=== PATIENT | female | born 1965 | race African-American/Black ===

== ENCOUNTER 2016-12-03 10:21 | Emergency (ER) | payer OTHER ==
[~2016-12-03] VITALS: Ht 157.5 cm; Wt 55.0 kg
[~2016-12-03 10:21] MED LIST: FLUT16H IH
[2016-12-03 10:48] LABS: HEMATOCRIT 37.8 % (36-46); HEMOGLOBIN 12.4 g/dL (12.0-16.0); MEAN CORPUSCULAR HEMOGLOBIN 26.6 pg (26.0-34.0); MEAN CORPUSCULAR HGB CONC 32.7 G/dL (31.0-37.0); MEAN CORPUSCULAR VOLUME 81 fL (80-100); PLATELET COUNT (AUTO) 221 K/uL (150-450); RED BLOOD CELL COUNT(AUTO) 4.64 MIL/uL (4.00-5.20); RED CELL DISTRIBUTION WIDTH 15.2 % (11.5-14.5)
[2016-12-03] MEDS ORDERED: HYDR25TA PO (10:50)
[2016-12-03 10:54] LABS: ANION GAP 11 mmol/L (8-16); CALCIUM, TOTAL 9.2 mg/dL (8.8-10.5); CARBON DIOXIDE 27 mmol/L (22-29); CHLORIDE 100 mmol/L (98-107); CREATININE 0.58 mg/dL (0.60-1.30); GLOMERULAR FILTR. RATE CALC > 60 mL/min (>60); POTASSIUM 3.7 mmol/L (3.5-5.1); SODIUM SERUM 138 mmol/L (136-145); UREA NITROGEN, BLOOD 13 mg/dL (7-18)
[2016-12-03 11:11] LABS: PROTHROMBIN TIME 10.3 SEC (9.4-11.6)
[2016-12-03 11:19] LABS: ALANINE AMINOTRANSFERASE 48 U/L (12-78); ALBUMIN 4.2 g/dL (3.4-5.0); ASPARTATE AMINOTRANSFERASE 79 U/L (15-37); BILIRUBIN,TOTAL 1.2 mg/dL (0.1-1.0); CREATINE KINASE MB 2.5 ng/mL (0-5); CREATINE KINASE, TOTAL 357 U/L (26-192); TOTAL PROTEIN, SERUM 8.6 g/dL (6.4-8.2)
[2016-12-03 11:23] LABS: B-TYPE NATRIURETIC PEPTIDE 13 pg/mL (0-100)
[2016-12-03 11:32] LABS: BAND NEUTROPHILS % (MANUAL) 5 % (1-5); LYMPHOCYTES % (MANUAL) 36 % (22-44); RBC MORPHOLOGY COMMENT NORMAL RBC MORPH; TOTAL CELLS COUNTED 100
[2016-12-03] MEDS ORDERED: SODIUM CHLORIDE 0.9% 1,000 ML IV ONE (12:15)
[2016-12-03] MEDS ORDERED: LEVOFLOXACIN 500 MG/D5% WATER 100 ML IV ONE (12:30)
[2016-12-03] MEDS ORDERED: HYDROCODONE/ACETAMINOPHEN 5-325 MG TABLET PO ONE (12:45)
[2016-12-03 12:47] LABS: GLUCOSE, URINE (UA) NEGATIVE (NEGATIVE); KETONES,URINE NEGATIVE (NEGATIVE); LEUKOCYTE ESTERASE ,URINE TRACE (NEGATIVE); OCCULT BLOOD,URINE NEGATIVE (NEGATIVE); PH,URINE 7.5 (5.0-8.0); PROTEIN,URINE TRACE (NEGATIVE)
[2016-12-03 12:50] LABS: ADD UA MICROSCOPIC YES; APPEARANCE,URINE HAZY (CLEAR)
[2016-12-03 12:51] LABS: RBC,URINE None Seen /HPF (0-2)
[2016-12-03 12:52] LABS: SQUAMOUS EPITHELIAL CELL,UR Few /LPF (None Seen)
[2016-12-03 13:41] VITALS: BP 142/81
== END 2016-12-03 13:50 | disposition home or self-care (01) ==
LOC: EMS 10:23
DX: R07.89 Other chest pain (principal); J06.9 Acute upper respiratory infection, unspecified; I25.10 Atherosclerotic heart disease of native coronary artery without angina pectoris; M79.1 Myalgia; I11.9 Hypertensive heart disease without heart failure; I25.2 Old myocardial infarction; J45.909 Unspecified asthma, uncomplicated; F14.10 Cocaine abuse, uncomplicated; F17.210 Nicotine dependence, cigarettes, uncomplicated; Z72.89 Other problems related to lifestyle; Z88.0 Allergy status to penicillin; Z88.6 Allergy status to analgesic agent
CPT/HCPCS: 36415; 71010; 80053; 80307; 81001; 82550; 82553; 83880; 84484; 85025; 85610; 85730; 87077; 87086; 87186; 93005; 96365; 99285; 99406; G0480; J1956; J7030

== ENCOUNTER 2017-06-15 13:43 | Emergency (ER) | payer OTHER ==
[~2017-06-15] VITALS: Ht 157.5 cm; Wt 47.3 kg
[~2017-06-15 13:43] MED LIST changes: +HYDR25TA PO
[2017-06-15] MEDS ORDERED: PERTUSS(ACELL),DIPH,TET VAC/PF 0.5 ML VIAL IM ONE (15:00)
[2017-06-15] MEDS ORDERED: TraMADol HCL 50 MG TABLET PO ONE (15:00)
[2017-06-15] MEDS ORDERED: POVIDONE-IODINE 10% 15 ML SOLUTION UD TP ONE (15:00)
[2017-06-15] MEDS ORDERED: CEPHALEXIN MONOHYDRATE 500 MG CAPSULE PO ONE (15:15)
[2017-06-15] MEDS ORDERED: SULFAMETHOX/TRIMETH DS 800-160 MG/TABLET PO ONE (15:15)
[2017-06-15] MEDS ORDERED: LIDOCAINE HCL 1% 10 ML VIAL INJ ONE (16:00)
[2017-06-15 16:42] VITALS: BP 129/87
== END 2017-06-15 16:52 | disposition home or self-care (01) ==
LOC: EMS 13:46
DX: S81.831A Puncture wound without foreign body, right lower leg, initial encounter (principal); S81.811A Laceration without foreign body, right lower leg, initial encounter; J45.909 Unspecified asthma, uncomplicated; I11.9 Hypertensive heart disease without heart failure; I25.2 Old myocardial infarction; F17.210 Nicotine dependence, cigarettes, uncomplicated; F14.90 Cocaine use, unspecified, uncomplicated; Z88.0 Allergy status to penicillin; Z88.6 Allergy status to analgesic agent; Z86.73 Personal history of transient ischemic attack (TIA), and cerebral infarction without residual deficits; W45.8XXA Other foreign body or object entering through skin, initial encounter; Y93.01 Activity, walking, marching and hiking; Y92.89 Other specified places as the place of occurrence of the external cause; Y99.8 Other external cause status
CPT/HCPCS: 12002; 73562; 90471; 90715; 99284; J3490

== ENCOUNTER 2017-10-02 19:12 | Emergency (ER) | payer OTHER ==
[~2017-10-02] VITALS: Ht 157.5 cm; Wt 47.3 kg
[2017-10-02] MEDS ORDERED: TraMADol HCL 50 MG TABLET PO ONE (22:15)
[2017-10-02] MEDS ORDERED: METHOCARBAMOL 500 MG TABLET PO ONE (22:15)
[2017-10-02 22:34] VITALS: BP 144/98
== END 2017-10-02 22:35 | disposition home or self-care (01) ==
LOC: EMS 19:17
DX: S96.911A Strain of unspecified muscle and tendon at ankle and foot level, right foot, initial encounter (principal); M62.838 Other muscle spasm; J45.909 Unspecified asthma, uncomplicated; I11.9 Hypertensive heart disease without heart failure; I25.2 Old myocardial infarction; F17.210 Nicotine dependence, cigarettes, uncomplicated; F11.10 Opioid abuse, uncomplicated; Z86.73 Personal history of transient ischemic attack (TIA), and cerebral infarction without residual deficits; Z88.0 Allergy status to penicillin; Z88.6 Allergy status to analgesic agent; X58.XXXA Exposure to other specified factors, initial encounter; Y93.89 Activity, other specified; Y92.89 Other specified places as the place of occurrence of the external cause; Y99.8 Other external cause status
CPT/HCPCS: 99283

== ENCOUNTER 2017-10-22 20:20 | Emergency (ER) | payer OTHER ==
[~2017-10-22] VITALS: Ht 165.1 cm; Wt 61.5 kg
[2017-10-22 22:49] LABS: GLUCOSE,POINT OF CARE 113 MG/DL (70-110)
[2017-10-22 22:52] LABS: HEMATOCRIT 38.7 % (36-46); HEMOGLOBIN 12.7 g/dL (12.0-16.0); MEAN CORPUSCULAR HGB CONC 32.8 G/dL (31.0-37.0); MEAN CORPUSCULAR VOLUME 82 fL (80-100); PLATELET COUNT (AUTO) 222 K/uL (150-450); RED BLOOD CELL COUNT(AUTO) 4.69 MIL/uL (4.00-5.20)
[2017-10-22 23:01] LABS: ANION GAP 13 mmol/L (8-16); CALCIUM, TOTAL 10.1 mg/dL (8.8-10.5); CARBON DIOXIDE 26 mmol/L (22-29); CHLORIDE 95 mmol/L (98-107); CREATININE 0.53 mg/dL (0.60-1.30); GLOMERULAR FILTR. RATE CALC > 60 mL/min (>60); GLUCOSE,RANDOM 96 mg/dL (70-110); POTASSIUM 4.6 mmol/L (3.5-5.1); SODIUM SERUM 134 mmol/L (136-145); UREA NITROGEN, BLOOD 15 mg/dL (7-18)
[2017-10-22 23:06] LABS: ALANINE AMINOTRANSFERASE 39 U/L (12-78); ALBUMIN 4.2 g/dL (3.4-5.0); ALKALINE PHOSPHATASE 100 U/L (46-116); ASPARTATE AMINOTRANSFERASE 44 U/L (15-37)
[2017-10-22 23:07] LABS: PROTHROMBIN TIME 10.4 SEC (9.4-11.6)
[2017-10-22] MEDS ORDERED: LevETIRAcetam 500 MG in DEXTROSE 5%-WATER 100 ML IV ONE (23:15)
[2017-10-22 23:23] LABS: BAND NEUTROPHILS % (MANUAL) 2 % (1-5); BASOPHILS % (MANUAL) 1 % (0-2); LYMPHOCYTES % (MANUAL) 11 % (22-44); MONOCYTES % (MANUAL) 1 % (2-9); SEGMENTED NEUTROPHILS % 85 % (40-70)
[2017-10-22] MEDS ORDERED: LORazepam 2 MG/ML VIAL IM ONE (23:30)
[2017-10-22 23:38] LABS: TROPONIN I 0.03 ng/mL (0.00-0.05)
[2017-10-23 00:44] LABS: APPEARANCE,URINE CLEAR (CLEAR); BILIRUBIN,URINE NEGATIVE (NEGATIVE); GLUCOSE, URINE (UA) NEGATIVE (NEGATIVE); KETONES,URINE 15 mg/dL (NEGATIVE); LEUKOCYTE ESTERASE ,URINE NEGATIVE (NEGATIVE); NITRATE,URINE NEGATIVE (NEGATIVE); OCCULT BLOOD,URINE MODERATE (NEGATIVE); PH,URINE 5.5 (5.0-8.0); PROTEIN,URINE SEE CONFIRM (NEGATIVE)
[2017-10-23 00:48] LABS: AMPHET/METH SCREEN,URINE NEGATIVE (NEGATIVE); BARBITURATE SCREEN, URINE NEGATIVE (NEGATIVE); BENZODIAZEPINES SCREEN,URINE NEGATIVE (NEGATIVE); CANNABINOID SCREEN,URINE NEGATIVE (NEGATIVE); COCAINE SCREEN,URINE NEGATIVE (NEGATIVE); METHADONE SCREEN, URINE NEGATIVE (NEGATIVE); OPIATE SCREEN,URINE POSITIVE (NEGATIVE)
[2017-10-23 00:49] LABS: PHENCYCLIDINE SCREEN,URINE NEGATIVE (NEGATIVE)
[2017-10-23 00:57] LABS: SULFOSALICYLIC ACID,URINE 2+ (Negative)
[2017-10-23 00:58] LABS: BACTERIA,URINE Few /HPF (None Seen); MUCUS,URINE Few LPF (None Seen); SQUAMOUS EPITHELIAL CELL,UR Few /LPF (None Seen); WBC,URINE 0-2 /HPF (0-5)
[2017-10-23 01:17] VITALS: BP 138/90
== END 2017-10-23 01:36 | disposition short-term general hospital (02) ==
LOC: EMS 20:23
DX: I61.9 Nontraumatic intracerebral hemorrhage, unspecified (principal); G40.909 Epilepsy, unspecified, not intractable, without status epilepticus; J45.909 Unspecified asthma, uncomplicated; I25.2 Old myocardial infarction; I11.9 Hypertensive heart disease without heart failure; F32.9 Major depressive disorder, single episode, unspecified; F17.210 Nicotine dependence, cigarettes, uncomplicated; F14.90 Cocaine use, unspecified, uncomplicated; Z86.73 Personal history of transient ischemic attack (TIA), and cerebral infarction without residual deficits; Z88.0 Allergy status to penicillin; Z88.6 Allergy status to analgesic agent
CPT/HCPCS: 36415; 51702; 70450; 71045; 80053; 80307; 81001; 82140; 82962; 84484; 85025; 85610; 85730; 87040; 93005; 96365; 96372; 99291; J0712; J2060; J7060

== ENCOUNTER 2018-02-20 01:56 | Emergency (ER) | payer OTHER ==
[~2018-02-20] VITALS: Ht 157.5 cm; Wt 54.5 kg
[2018-02-20] MEDS ORDERED: FERR325T22 PO (02:02)
[2018-02-20] MEDS ORDERED: CYCL10TA7 PO (02:02)
[2018-02-20] MEDS ORDERED: LOSA25TA21 PO (02:05)
[2018-02-20] MEDS ORDERED: DIAZEPAM 5 MG TABLET PO ONE (02:15)
[2018-02-20 02:59] VITALS: BP 119/88
== END 2018-02-20 03:32 | disposition home or self-care (01) ==
LOC: EMS 01:56
DX: S16.1XXA Strain of muscle, fascia and tendon at neck level, initial encounter (principal); G44.209 Tension-type headache, unspecified, not intractable; J45.909 Unspecified asthma, uncomplicated; I11.9 Hypertensive heart disease without heart failure; I25.2 Old myocardial infarction; F17.210 Nicotine dependence, cigarettes, uncomplicated; F14.90 Cocaine use, unspecified, uncomplicated; Z86.73 Personal history of transient ischemic attack (TIA), and cerebral infarction without residual deficits; Z88.0 Allergy status to penicillin; Z88.6 Allergy status to analgesic agent; X58.XXXA Exposure to other specified factors, initial encounter; Y93.89 Activity, other specified; Y92.89 Other specified places as the place of occurrence of the external cause; Y99.8 Other external cause status
CPT/HCPCS: 99283

== ENCOUNTER 2018-06-07 14:01 | Emergency (ER) | payer OTHER ==
[~2018-06-07] VITALS: Ht 157.5 cm; Wt 69.1 kg
[~2018-06-07 14:01] MED LIST changes: +CYCL10TA7 PO; +FERR325T22 PO; -FLUT16H IH; -HYDR25TA PO; +LOSA25TA21 PO
[2018-06-07] MEDS ORDERED: seizure PO (14:14)
[2018-06-07] MEDS ORDERED: HydrOXYzine HCL 50 MG TABLET PO ONE (15:15)
[2018-06-07 15:43] VITALS: BP 130/85
== END 2018-06-07 15:44 | disposition home or self-care (01) ==
LOC: EMS 14:04
DX: S50.861A Insect bite (nonvenomous) of right forearm, initial encounter (principal); L03.113 Cellulitis of right upper limb; J45.909 Unspecified asthma, uncomplicated; F32.9 Major depressive disorder, single episode, unspecified; I10 Essential (primary) hypertension; I25.2 Old myocardial infarction; I35.1 Nonrheumatic aortic (valve) insufficiency; Z90.49 Acquired absence of other specified parts of digestive tract; Z90.89 Acquired absence of other organs; Z86.73 Personal history of transient ischemic attack (TIA), and cerebral infarction without residual deficits; Z79.899 Other long term (current) drug therapy; Z88.0 Allergy status to penicillin; Z88.8 Allergy status to other drugs, medicaments and biological substances; W57.XXXA Bitten or stung by nonvenomous insect and other nonvenomous arthropods, initial encounter; Y93.89 Activity, other specified; Y92.89 Other specified places as the place of occurrence of the external cause; Y99.8 Other external cause status
CPT/HCPCS: 99283

== ENCOUNTER 2018-11-01 17:29 | Emergency (ER) | payer OTHER ==
[~2018-11-01] VITALS: Ht 157.5 cm; Wt 57.3 kg
[~2018-11-01 17:29] MED LIST changes: -CYCL10TA7 PO; -FERR325T22 PO; -LOSA25TA21 PO; +LOSA25TA41 PO; +seizure PO
[2018-11-01] MEDS ORDERED: METO25 PO (19:04)
[2018-11-01] MEDS ORDERED: SILVER NITRATE APPLICATOR 1 EA STICK TP ONE (19:30)
[2018-11-01 19:45] VITALS: BP 125/72
== END 2018-11-01 20:08 | disposition home or self-care (01) ==
LOC: EMS 17:30
DX: R04.0 Epistaxis (principal); J45.909 Unspecified asthma, uncomplicated; I11.9 Hypertensive heart disease without heart failure; I25.2 Old myocardial infarction; F32.9 Major depressive disorder, single episode, unspecified; F14.90 Cocaine use, unspecified, uncomplicated; F19.90 Other psychoactive substance use, unspecified, uncomplicated; F17.210 Nicotine dependence, cigarettes, uncomplicated; Z86.73 Personal history of transient ischemic attack (TIA), and cerebral infarction without residual deficits; Z93.3 Colostomy status
CPT/HCPCS: 30901

== ENCOUNTER 2018-11-11 14:53 | Emergency (ER) | payer OTHER ==
[~2018-11-11] VITALS: Ht 162.6 cm; Wt 65.9 kg
[~2018-11-11 14:53] MED LIST changes: +METO25 PO
[2018-11-11 16:43] LABS: BASOPHILS % (AUTO) 1.5 % (0.0-2.0); EOSINOPHILS % (AUTO) 1.7 % (1.0-6.0); HEMATOCRIT 32.6 % (36-46); HEMOGLOBIN 10.9 g/dL (12.0-16.0); LYMPHOCYTES # (AUTO) 1.6 K/uL (1.0-4.8); LYMPHOCYTES % (AUTO) 47.8 % (22.0-44.0); MEAN CORPUSCULAR HEMOGLOBIN 28.6 pg (26.0-34.0); MEAN CORPUSCULAR HGB CONC 33.4 G/dL (31.0-37.0); MEAN CORPUSCULAR VOLUME 86 fL (80-100); MONOCYTES # (AUTO) 0.2 K/uL (0.1-1.0); MONOCYTES % (AUTO) 5.6 % (2.0-9.0); NEUTROPHILS # (AUTO) 1.5 K/uL (1.8-7.7); NEUTROPHILS % (AUTO) 43.4 % (40.0-70.0); PLATELET COUNT (AUTO) 304 K/uL (150-450)
[2018-11-11 16:59] LABS: INR 1.1 (0.9-1.1)
[2018-11-11] MEDS ORDERED: SILVER NITRATE APPLICATOR 1 EA STICK TP ONE (17:15)
[2018-11-11] MEDS ORDERED: LIDOCAINE 2% 5 ML JELLY TP ONE (17:15)
[2018-11-11 17:25] LABS: PLATELET MORPHOLOGY COMMENT NORMAL
[2018-11-11] MEDS ORDERED: ACETAMINOPHEN 500 MG TABLET PO ONE (18:15)
[2018-11-11] MEDS ORDERED: OXYMETAZOLINE HCL 0.05% 15 ML NASAL SPRAY NASAL ONE (19:45)
[2018-11-11 23:00] VITALS: BP 147/84
== END 2018-11-12 00:03 | disposition short-term general hospital (02) ==
LOC: EMS 14:54
DX: R04.0 Epistaxis (principal); I11.9 Hypertensive heart disease without heart failure; J45.909 Unspecified asthma, uncomplicated; I25.2 Old myocardial infarction; F14.90 Cocaine use, unspecified, uncomplicated; F15.90 Other stimulant use, unspecified, uncomplicated; F17.210 Nicotine dependence, cigarettes, uncomplicated; Z88.0 Allergy status to penicillin; Z88.6 Allergy status to analgesic agent
CPT/HCPCS: 30901; 99406

== ENCOUNTER 2019-12-26 12:56 | Emergency (ER) | payer MEDICAID, MEDICARE, OTHER ==
[~2019-12-26] VITALS: Ht 162.6 cm; Wt 65.0 kg
[~2019-12-26 12:56] MED LIST changes: -LOSA25TA41 PO; +LOSA25TA71 PO
[2019-12-26] MEDS ORDERED: KETOROLAC TROMETHAMINE 30 MG/ML VIAL IM ONE (14:45)
[2019-12-26 15:50] VITALS: BP 103/75
== END 2019-12-26 15:54 | disposition home or self-care (01) ==
LOC: EMS 12:57
DX: M77.12 Lateral epicondylitis, left elbow (principal); I11.9 Hypertensive heart disease without heart failure; I25.2 Old myocardial infarction; J45.909 Unspecified asthma, uncomplicated; F17.210 Nicotine dependence, cigarettes, uncomplicated; F15.90 Other stimulant use, unspecified, uncomplicated; F32.9 Major depressive disorder, single episode, unspecified; F11.90 Opioid use, unspecified, uncomplicated; Z88.0 Allergy status to penicillin; Z88.6 Allergy status to analgesic agent; Z86.73 Personal history of transient ischemic attack (TIA), and cerebral infarction without residual deficits; Z98.890 Other specified postprocedural states; Z79.899 Other long term (current) drug therapy
CPT/HCPCS: 73080; 96372; 99283; J1885

== ENCOUNTER 2020-02-20 11:31 | Inpatient (IN) | payer MEDICAID ==
[~2020-02-20] VITALS: Ht 157.5 cm; Wt 51.8 kg
[2020-02-20] MEDS ORDERED: ACETAMINOPHEN 325 MG TABLET PO ONE (12:15)
[2020-02-20 12:43] LABS: ANION GAP 8 mmol/L (8-16); CALCIUM, TOTAL 9.8 mg/dL (8.8-10.5); CARBON DIOXIDE 28 mmol/L (22-29); CHLORIDE 101 mmol/L (98-107); CREATININE 0.68 mg/dL (0.60-1.30); GLOMERULAR FILTR. RATE CALC > 60 mL/min (>60); GLUCOSE,RANDOM 98 mg/dL (70-110); POTASSIUM 3.7 mmol/L (3.5-5.1); SODIUM SERUM 137 mmol/L (136-145); UREA NITROGEN, BLOOD 12 mg/dL (7-18)
[2020-02-20 12:49] LABS: ALANINE AMINOTRANSFERASE 44 U/L (12-78); ALBUMIN 4.6 g/dL (3.4-5.0); ALKALINE PHOSPHATASE 103 U/L (46-116); ASPARTATE AMINOTRANSFERASE 51 U/L (15-37); BILIRUBIN,TOTAL 1.2 mg/dL (0.1-1.0); TOTAL PROTEIN, SERUM 8.1 g/dL (6.4-8.2)
[2020-02-20 13:02] LABS: BASOPHILS % (AUTO) 1.2 % (0.0-2.0); EOSINOPHILS % (AUTO) 3.2 % (1.0-6.0); HEMOGLOBIN 12.9 g/dL (12.0-16.0); LYMPHOCYTES # (AUTO) 1.3 K/uL (1.0-4.8); LYMPHOCYTES % (AUTO) 40.4 % (22.0-44.0); MEAN CORPUSCULAR VOLUME 82 fL (80-100); MONOCYTES # (AUTO) 0.3 K/uL (0.1-1.0); MONOCYTES % (AUTO) 10.1 % (2.0-9.0); NEUTROPHILS # (AUTO) 1.5 K/uL (1.8-7.7); NEUTROPHILS % (AUTO) 45.1 % (40.0-70.0); PLATELET COUNT (AUTO) 251 K/uL (150-450); RED BLOOD CELL COUNT(AUTO) 4.77 MIL/uL (4.00-5.20); RED CELL DISTRIBUTION WIDTH 14.9 % (11.5-14.5)
[2020-02-20 13:15] LABS: PROTHROMBIN TIME 10.4 SEC (9.4-11.6)
[2020-02-20 13:38] LABS: CREATINE KINASE, TOTAL ONLY 164 U/L (26-192); PHOSPHORUS 3.2 mg/dL (2.5-4.9)
[2020-02-20 13:43] LABS: B-TYPE NATRIURETIC PEPTIDE 50 pg/mL (0-100)
[2020-02-20] MEDS ORDERED: ONDANSETRON HCL 4 MG/2 ML VIAL IVP PRN ×2 (15:30→16:15)
[2020-02-20] MEDS ORDERED: 0.9% SODIUM CHLORIDE 10 ML SYRINGE IVP PRN ×2 (15:30→16:15)
[2020-02-20] MEDS ORDERED: ACETAMINOPHEN 325 MG TABLET PO PRN (15:30)
[2020-02-20 16:08] LABS: FREE T4 (FREE THYROXINE) 1.03 ng/dL (0.76-1.46); THYROID STIMULATING HORMONE 1.12 uIU/mL (0.36-3.74)
[2020-02-20] MEDS ORDERED: ALBUTEROL SULFATE 2.5 MG/0.5 ML NEB SOLUTION NEB PRN (16:15)
[2020-02-20] MEDS ORDERED: IPRATROPIUM BROMIDE 0.5 MG/2.5 ML NEB SOLUTION NEB PRN (16:15)
[2020-02-20] MEDS ORDERED: MAGNESIUM HYDROXIDE SUSPENSION 30 ML UDCUP PO PRN (16:15)
[2020-02-20] MEDS ORDERED: DOCUSATE SODIUM 100 MG CAPSULE PO PRN (16:15)
[2020-02-20] MEDS ORDERED: BISACODYL 10 MG RECTAL RECTAL SUPPOSITORY PR PRN (16:15)
[2020-02-20] MEDS: FOLIC ACID 1 MG TABLET PO SCH (16:49)
[2020-02-20] MEDS: PANTOPRAZOLE SODIUM 40 MG DR TABLET PO SCH (16:49)
[2020-02-20] MEDS: THIAMINE 100 MG TABLET PO SCH (16:49)
[2020-02-20] MEDS: MULTIVITAMINS, THERAPEUTIC TABLET PO SCH (17:19)
[2020-02-20 20:26] VITALS: BP 118/81
[2020-02-20] MEDS: ACETAMINOPHEN 325 MG TABLET PO PRN (21:47)
[2020-02-20 23:36] VITALS: BP 106/62
[2020-02-21 04:42] VITALS: BP 114/78
[2020-02-21] MEDS: ACETAMINOPHEN 325 MG TABLET PO PRN ×2 (06:33→20:32)
[2020-02-21 06:52] LABS: BASOPHILS % (AUTO) 0.8 % (0.0-2.0); EOSINOPHILS % (AUTO) 5.3 % (1.0-6.0); HEMATOCRIT 40.3 % (36-46); HEMOGLOBIN 13.3 g/dL (12.0-16.0); LYMPHOCYTES # (AUTO) 1.1 K/uL (1.0-4.8); LYMPHOCYTES % (AUTO) 40.1 % (22.0-44.0); MEAN CORPUSCULAR HEMOGLOBIN 27.4 pg (26.0-34.0); MEAN CORPUSCULAR VOLUME 83 fL (80-100); MONOCYTES # (AUTO) 0.3 K/uL (0.1-1.0); MONOCYTES % (AUTO) 10.1 % (2.0-9.0); NEUTROPHILS # (AUTO) 1.2 K/uL (1.8-7.7); NEUTROPHILS % (AUTO) 43.7 % (40.0-70.0); PLATELET COUNT (AUTO) 236 K/uL (150-450); RED BLOOD CELL COUNT(AUTO) 4.85 MIL/uL (4.00-5.20); RED CELL DISTRIBUTION WIDTH 14.9 % (11.5-14.5)
[2020-02-21 07:09] LABS: ANION GAP 12 mmol/L (8-16); CALCIUM, TOTAL 9.9 mg/dL (8.8-10.5); CARBON DIOXIDE 27 mmol/L (22-29); CHLORIDE 98 mmol/L (98-107); CHOL/HDL RATIO 1.6 (3.9-5.7); CHOLESTEROL 202 mg/dL (131-200); CREATININE 0.56 mg/dL (0.60-1.30); GLOMERULAR FILTR. RATE CALC > 60 mL/min (>60); GLUCOSE,RANDOM 99 mg/dL (70-110); HDL CHOLESTEROL 128 mg/dL (40-60); LDL CHOL (CALC.) 59 mg/dL (0-130); POTASSIUM 3.2 mmol/L (3.5-5.1); SODIUM SERUM 137 mmol/L (136-145); TRIGLYCERIDES 73 mg/dL (15-150); UREA NITROGEN, BLOOD 15 mg/dL (7-18)
[2020-02-21] MEDS: FOLIC ACID 1 MG TABLET PO SCH (10:13)
[2020-02-21] MEDS: MULTIVITAMINS, THERAPEUTIC TABLET PO SCH (10:14)
[2020-02-21] MEDS: THIAMINE 100 MG TABLET PO SCH (10:14)
[2020-02-21] MEDS: PANTOPRAZOLE SODIUM 40 MG DR TABLET PO SCH (10:14)
[2020-02-21] MEDS ORDERED: POTASSIUM CHLORIDE 20 MEQ ER TABLET PO PRN (11:00)
[2020-02-21 11:43] VITALS: BP_SYST 110; BP_SYST 96; BP_DIAS 57; BP_DIAS 79
[2020-02-21] MEDS ORDERED: ALPRAZolam 0.25 MG TABLET PO ONE (15:45)
[2020-02-21 19:57] VITALS: BP 121/86
[2020-02-21] MEDS ORDERED: ATORVASTATIN CALCIUM 40 MG TABLET PO SCH (21:00)
[2020-02-21 21:31] LABS: AMPHET/METH SCREEN,URINE POSITIVE (NEGATIVE); BARBITURATE SCREEN, URINE NEGATIVE (NEGATIVE); BENZODIAZEPINES SCREEN,URINE NEGATIVE (NEGATIVE); CANNABINOID SCREEN,URINE POSITIVE (NEGATIVE); COCAINE SCREEN,URINE NEGATIVE (NEGATIVE); METHADONE SCREEN, URINE NEGATIVE (NEGATIVE); OPIATE SCREEN,URINE NEGATIVE (NEGATIVE)
[2020-02-21 21:32] LABS: PHENCYCLIDINE SCREEN,URINE NEGATIVE (NEGATIVE)
[2020-02-21 23:49] VITALS: BP 110/73
[2020-02-22 04:58] VITALS: BP 111/78
[2020-02-22] MEDS: PANTOPRAZOLE SODIUM 40 MG DR TABLET PO SCH (08:57)
[2020-02-22] MEDS: MULTIVITAMINS, THERAPEUTIC TABLET PO SCH (08:57)
[2020-02-22] MEDS: FOLIC ACID 1 MG TABLET PO SCH (08:57)
[2020-02-22] MEDS: THIAMINE 100 MG TABLET PO SCH (08:57)
[2020-02-22 09:01] VITALS: BP 116/82
[2020-02-22] MEDS ORDERED: ALPRAZolam 0.25 MG TABLET PO ONE (09:45)
[2020-02-22 10:51] VITALS: BP 119/74
[2020-02-22] MEDS ORDERED: ATOR-2 PO (13:55)
[2020-02-22] MEDS ORDERED: FOLI-130 PO (13:56)
[2020-02-22] MEDS ORDERED: MULT1TAB70 PO (13:57)
[2020-02-22] MEDS ORDERED: MULT-1203 PO (13:57)
== END 2020-02-22 15:15 | disposition home or self-care (01) | DRG 310 ==
LOC: EMS 11:33 → 5S 19:04
PROVIDERS: ADMIT Internal Medicine; ATTEND Internal Medicine
DX: R00.1 Bradycardia, unspecified (principal); F10.20 Alcohol dependence, uncomplicated; M79.671 Pain in right foot; Z86.73 Personal history of transient ischemic attack (TIA), and cerebral infarction without residual deficits; F17.210 Nicotine dependence, cigarettes, uncomplicated; I10 Essential (primary) hypertension; I25.2 Old myocardial infarction; I25.10 Atherosclerotic heart disease of native coronary artery without angina pectoris; J45.909 Unspecified asthma, uncomplicated; Z82.49 Family history of ischemic heart disease and other diseases of the circulatory system; Z93.3 Colostomy status; F14.90 Cocaine use, unspecified, uncomplicated; F32.9 Major depressive disorder, single episode, unspecified; Z88.0 Allergy status to penicillin; Y90.9 Presence of alcohol in blood, level not specified; R42 Dizziness and giddiness
CPT/HCPCS: 70450; 70551; 83735; 84100; 84132; 84439; 84443; 93005; 93306; 97161; G0480

== ENCOUNTER 2020-11-08 13:30 | Emergency (ER) | payer MEDICAID ==
[~2020-11-08] VITALS: Ht 157.5 cm; Wt 54.5 kg
[~2020-11-08 13:30] MED LIST changes: +ATOR-2 PO; +FOLI-130 PO; -LOSA25TA71 PO; -METO25 PO; +MULT-1203 PO; -seizure PO
[2020-11-08] MEDS ORDERED: CefTRIAXone SODIUM 1 GM/VIAL IM ONE (15:15)
[2020-11-08] MEDS ORDERED: LIDOCAINE/PF 1% 2 ML VIAL IM ONE (15:15)
[2020-11-08 16:18] VITALS: BP 134/86
== END 2020-11-08 16:22 | disposition home or self-care (01) ==
LOC: EMS 13:36
DX: N76.0 Acute vaginitis (principal); J45.909 Unspecified asthma, uncomplicated; F32.9 Major depressive disorder, single episode, unspecified; I11.9 Hypertensive heart disease without heart failure; I25.2 Old myocardial infarction; F17.210 Nicotine dependence, cigarettes, uncomplicated; F14.90 Cocaine use, unspecified, uncomplicated; F19.90 Other psychoactive substance use, unspecified, uncomplicated; Z86.73 Personal history of transient ischemic attack (TIA), and cerebral infarction without residual deficits; Z88.0 Allergy status to penicillin; Z88.6 Allergy status to analgesic agent
CPT/HCPCS: 87210; 87491; 87591; 96372; 99283; J0696; J3490